=== PATIENT | male | born 1955 | race Caucasian/White ===

== ENCOUNTER 2025-03-21 06:32 | Emergency (ER) | payer OTHER, SELFPAY ==
[2025-03-21] VITALS (11 sets, daily range): BP systolic 163–170; BP diastolic 82; PULSE 70–102; TEMP 37.3; O2SAT 91–97; BMI 34.5
--- NOTE | 2025-03-21 06:52 | XR_ITS ---
The [address] [address] Patient Name: ARLETTE GALLARDO MRN: [id number] date: 1955 Sex: M Assigned Patient Location: ED.MAIN Current Patient Location: ED.MAIN Accession/Order Number: [id number] Exam Date: 03/21/2025 08:06 Report Date: 03/21/2025 08:08 At the request of: MIRYAM AZUL DO Procedure: XR chest 1V XR chest 1V 03/21/2025 7:37 AM SIGNS AND SYMPTOMS: neck pain PROTOCOL: Frontal radiograph COMPARISON: 10/23/2019 FINDINGS: The trachea is midline. Sternotomy wires overlie the mediastinum. There is mild cardiomegaly. Opacities noted in the left lung base. The lung parenchyma is clear. The bony thorax is intact. Remote healed or healing left fifth through seventh rib fractures are redemonstrated. XR/XR chest 1V IMPRESSION: There is cardiomegaly with a pleural-parenchymal opacity in the left lung base similar to the prior exam. Impression dictated by: Brian Iglesias M.D. 03/21/2025 8:08 AM Dictation Location: [place] [address] Electronically authenticated by: [id number] Y Date: 03/21/2025 08:08
--- NOTE | 2025-03-21 06:52 | CT_ITS ---
The [address] [address] Patient Name: ARLETTE GALLARDO MRN: [id number] date: 1955 Sex: M Assigned Patient Location: ED.MAIN Current Patient Location: ED.MAIN Accession/Order Number: [id number] Exam Date: 03/21/2025 08:08 Report Date: 03/21/2025 08:13 At the request of: MIRYAM AZUL DO Procedure: CT cervical spine wo con CT cervical spine wo con 03/21/2025 7:33 AM SIGN AND SYMPTOMS: Left neck and shoulder pain TECHNIQUE: Multi detector CT axial slices of the cervical spine were obtained without IV contrast. Volumetric acquisition sagittal, coronal, and 3-D reconstructions were performed and reviewed. CT was performed with one or more of the following dose reduction techniques: Automated exposure control, adjustment of the mA and/or kV according to patient size, or use of iterative reconstruction technique. COMPARISON: None. FINDINGS: There is preservation of the vertebral body heights. There is severe disc height loss at C3-C4 with moderate disc height loss at C4-C5, C5-C6, and C6-7. There is facet hypertrophy with uncovertebral joint spurring contributing to neural foraminal stenosis which is most pronounced at C3-C4. No fractures or dislocations are seen. There is 2 mm of anterolisthesis of C4 upon C5 secondary to facet hypertrophy. The craniocervical junction is within normal limits. Degenerative changes are noted in the atlantoaxial joint. The prevertebral soft tissues are within normal limits. The paraspinous soft tissues are within normal limits. Atherosclerotic changes are noted in the carotid bifurcations. The lung apices are unremarkable. Small left mastoid effusion is noted. CT/CT cervical spine wo con IMPRESSION: No fracture. There is 2 mm of anterolisthesis of C4 upon C5 secondary to facet hypertrophy. Degenerative changes are noted throughout cervical spine, greatest at C3-C4. Impression dictated by: Brian Iglesias M.D. 03/21/2025 8:13 AM Dictation Location: [place] [address] Electronically authenticated by: [id number] Y Date: 03/21/2025 08:13
--- OUTSIDE RECORDS SUMMARY | 2025-03-21 06:53 | XMS_ITS | Clinical Summary ---
Author Organization [facility] [employer] Address [id number] [address] [place] [address] Care Team Providers Care Personal Development Educator Name Role Phone No Pcp, No Pcp Primary Care Provider Unavailabl e Social History Tobacco Use Types Packs/Day Years Used Date Smoking Tobacco: Never Assessed Childcare Answer Date Recorded Childcare Unknown 01/30/2019 Employment Answer Date Recorded Employment Unknown 01/30/2019 Sex and Gender Information Value Date Recorded Sex Assigned at Not on file Legal Sex Male 11:24 AM EDT Gender Identity Not on file Sexual Orientation Not on file Plan of Treatment Health Maintenance Due Date Last Done Comments Depression Screening 1965 Tobacco Screening 1965 Adult BMI Screening 12/06/1971 DTaP,Tdap and Td Vaccines (1 - Tdap) 1972 Zoster (Shingles) Vaccine (1 of 2) 12/06/2003 Fall Risk Screening 2018 Influenza Vaccine 04/21/2025 08/24/2018 Medical Devices Not on file Insurance [facility] [employer] Care Teams Personal Development Educator Relationship Specialty Start Date End Date No Pcp, [place] [id number] PCP - General Family Medicine 01/24/23
--- OUTSIDE RECORDS SUMMARY | 2025-03-21 06:53 | XMS_ITS | Clinical Summary ---
Author Organization [facility] Address [address] [place] [address], [address] [place] [address] Care Team Providers Care Paper Cutter Operator Name Role Phone Unavailable Primary Care Provider Unavailabl e Social History Tobacco Use Types Packs/Day Years Used Date Smoking Tobacco: Never Assessed Sex and Gender Information Value Date Recorded Sex Assigned at Not on file Legal Sex Male 12:41 PM EDT Gender Identity Not on file Sexual Orientation Not on file Plan of Treatment Not on file
--- NOTE | 2025-03-21 06:56 | ECG_ITS ---
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 Measurements Intervals [place] Rate: 91 P: 20 [place]: 240 QRS: 90 QRSD: 104 T: -46 QT: 354 QTc: 402 Interpretive Statements 1100 Sinus rhythm 2231 First degree AV block [address] depression, possible subendocardial injury 4564 Twave abnormality, possible lateral ischemia 4664 Twave abnormality, possible inferior ischemia 9150 abnormal ECG Compared to ECG 11/12/2019 21:55:05 First degree AV block now present Possible ischemia now present Ventricular premature complex(es) no longer present Electronically Signed On 03-21-2025 18:31:34 EDT by LISA LOPEZ M.D.
--- NOTE | 2025-03-21 06:56 | ED.GENADUL1 ---
HPI HPI - General Adult General Chief complaint: Neck Pain/Injury Stated complaint: SHOULDER/NECK PAIN Time Seen by Provider: 03/21/25 06:46 Source: patient Mode of arrival: ambulance History of Present Illness HPI narrative: The patient is a 69-year-old male presenting to the emergency department via EMS. Patient is presenting to the emergency department for 4 to 5 days of left shoulder and neck pain. He stated that there was no known injury. He denied any heavy lifting, moving, twisting or repetitive movements. He is right-hand dominant. When it originally happened he assumed he slept on it wrong. So, he just let it go. However, the pain has gotten extremely severe. Is a 9 out of 10. It is sharp and stabbing-like in sensation. Movement makes it worse. Nothing makes it better. He has not had a temperature. He denies any midline point tenderness to the neck. He denies any fever or chills. He denies any IV drug use. He is borderline diabetic. No known immune modulating agents. The patient does not have any chest pain. He does not have any shortness of breath although he thinks he had some shortness of breath in the ambulance on the way over. Patient states that he thinks he was sweaty on the way over as well. No nausea. Patient denies any recent exertional dyspnea or shortness of breath. Denies any numbness or weakness in his upper extremities. Patient is unable to turn his head left or right. It is hard for him to pick his head up off of the pillow. No fever or chills. No injury. Past medical history: High blood pressure, high cholesterol, borderline diabetic Allergies: None Medications: Patient does not have a medication list available to us at time of assessment. Related Data Allergies Allergy/AdvReac Type Severity Reaction Status Date / Time No Known Drug Allergies Allergy Verified 03/21/25 06:35 Opioid HPI Opioid Management Most Recent Opioid Data: Last Pain Scale 10 Today, 07:04 Last ED Pain Assessment Today, 06:48 Last MAR Pain Assessment Today, 07:04 Review of Systems ROS Status of ROS 10 or more systems reviewed and unremarkable except as noted in history and below PFSH PFSH Social History Little interest or pleasure in doing things: not at all Feeling down, depressed, or hopeless: not at all Exam Narrative Exam Narrative: Prior to examining the patient, I have washed with hospital approved and provided Antiseptic Hand General Freight Agent and have also applied gloves.? Prior to touching the patient, I asked for consent to examine the patient.? General: Alert and oriented, well nourished, moderate distress. Painful to move his head right or left. Eye: PERRL, EOMI, normal conjunctiva. HENT: Normocephalic, normal hearing, no scleral icterus, Mucous membranes appear dry. Neck: Supple, non-tender, no carotid bruits, no JVD, no lymphadenopathy. patient can put his chin to his chest although it is extremely painful. Lungs: Clear to auscultation and percussion, non-labored respiration. No rhonchi, rales, wheezing Heart: Normal rate, regular rhythm, no murmur, gallop or edema. Abdomen: Soft, non-tender, non-distended, normal bowel sounds, no masses. Musculoskeletal: Normal range of motion and strength, no tenderness or swelling. Skin: Skin is warm, dry and pink, no rashes or lesions. Vitiligo bilateral upper extremities Neurologic: Awake, alert, and oriented X3, CN II-XII intact. Psychiatric: Cooperative, appropriate mood and affect.? Following the conclusion of the examination, I have washed my hands thoroughly after removing examination gloves. Constitutional Vital Signs, click to edit/add: Last Vital Signs Temp 99.2 F 03/21/25 06:36 Pulse 102 H 03/21/25 06:36 Resp 18 03/21/25 06:36 BP 170/82 H 03/21/25 06:36 Pulse Ox 97 03/21/25 06:36 O2 Del Method Room Air 03/21/25 06:36 Course Course Hospital Course: Patient presented to the emergency department with left shoulder and neck pain. Pain is a 9 out of 10. Upon physical exam the etiology is not clear. Generally considered chest pain equivalent, infection, or musculoskeletal etiologies. Provided the patient some analgesic medication with orphenadrine 60 mg IV push, morphine 4 mg IV push and Zofran 4 mg IV push. Obtained laboratories for chest pain etiology as well as imaging. Vital Signs Vital signs: Vital Signs Temperature 99.2 F 03/21/25 06:36 Pulse Rate 102 H 03/21/25 06:36 Respiratory Rate 18 03/21/25 06:36 Blood Pressure 170/82 H 03/21/25 06:36 Pulse Oximetry 97 03/21/25 06:36 Oxygen Delivery Method Room Air 03/21/25 06:36 Temperature 99.2 F 03/21/25 06:36 Pulse Rate 102 H 03/21/25 06:36 Respiratory Rate 18 03/21/25 06:36 Blood Pressure 170/82 H 03/21/25 06:36 Pulse Oximetry 97 03/21/25 06:36 Oxygen Delivery Method Room Air 03/21/25 06:36 Medical Decision Making MDM Narrative Medical decision making narrative: This, we are currently pending all imaging and blood work. My colleague is taking over the case at 7 AM. I do not think that the patient has meningitis. He does have a stiff neck that is painful to move but he can put his chin to his chest albeit with some discomfort but he does not have true meningeal signs. There is been no fever or chills. He does not appear toxic in nature. I do not believe that the patient has spinal epidural abscess. The patient has no midline point tenderness. He does not have any numbness or weakness in his upper extremities. He does not have any risk factors less than his age and borderline diabetes. Differential Diagnosis Differential Diagnosis: Acute coronary syndrome, arthritis, radiculopathy, meningitis Medical Records Medical records reviewed: Yes I reviewed the patient's medical records Lab Data Labs: Lab Results 03/21/25 Range/Units 06:40 WBC 7.6 (4.0-11.0) 10^3/uL RBC 4.46 L (4.70-6.10) 10^6/uL Hgb 13.2 L (14.0-18.0) g/dL Hct 39.0 L (42.0-54.0) % MCV 87.4 (80.0-94.0) fL MCH 29.6 (25.9-34.0) pg MCHC 33.8 (29.9-35.2) g/dL RDW 16.6 H (11.0-15.0) % Plt Count 144 L (150-450) 10^3/uL MPV 10.0 (9.5-13.5) fL Neut % (Auto) 71.0 (43.0-75.0) % Lymph % (Auto) 19.2 L (20.5-60.0) % [place] % (Auto) 8.7 (1.7-12.0) % Eos % (Auto) 0.3 L (0.9-7.0) % Baso % (Auto) 0.1 L (0.2-2.0) % Neut # (Auto) 5.4 (1.4-6.5) 10^3/uL Lymph # (Auto) 1.5 (1.2-3.8) 10^3/uL [place] # (Auto) 0.7 (0.3-0.8) 10^3/uL Eos # (Auto) 0.0 (0.0-0.7) 10^3/uL Baso # (Auto) 0.0 (0.0-0.1) 10^3/uL Abs Immat Gran (auto) 0.05 H (0.00-0.03) 10^3/uL Imm/Tot Granulo (auto) 0.7 H (0.0-0.5) % Sodium 135 L (136-145) mmol/L Potassium 4.3 (3.5-5.1) mmol/L Chloride 99 (98-107) mmol/L Carbon Dioxide 23.9 (21.0-32.0) mmol/L Anion Gap 16.4 BUN 27.0 H (7.0-18.0) mg/dL Creatinine 1.74 H (0.70-1.30) mg/dL Est GFR ( Amer) 47 L (>=60 mL/min/1.73m^2) Est GFR (Non-Af Amer) 39 L (>=60 mL/min/1.73m^2) BUN/Creatinine Ratio 15.5 Glucose 164 H (74-106) mg/dL Calcium 9.1 (8.5-10.1) mg/dL Magnesium 1.9 (1.8-2.4) mg/dL Troponin I High Sens 21.1 (4.0-76.1) pg/mL ECG Data Attestation: I personally reviewed and interpreted this ECG as follows: Interpretation: Twelve-lead EKG reveals a sinus rhythm with a ventricular of 91 bpm. The IN interval is prolonged. QRS duration is 104 ms. Patient has poor R wave progression in the septal leads. T wave inversion in the inferolateral leads. Borderline criteria for left ventricular hypertrophy. Summary: Abnormal EKG. Discharge Plan Discharge Patient Disposition: Still a Patient
[2025-03-21 06:59] LABS: Hematocrit 39.0 % (42.0-54.0); Hemoglobin 13.2 g/dL (14.0-18.0); Immature Granulocytes Abs Auto 0.05 10^3/uL (0.00-0.03); Immature Granulocytes Pct Auto 0.7 % (0.0-0.5); Lymphocytes Absolute Auto 1.5 10^3/uL (1.2-3.8); Mean Corpuscular HGB Conc 33.8 g/dL (29.9-35.2); Mean Corpuscular Hemoglobin 29.6 pg (25.9-34.0); Mean Corpuscular Volume 87.4 fL (80.0-94.0); Platelet Count 144 10^3/uL (150-450); Red Blood Count 4.46 10^6/uL (4.70-6.10); White Blood Count 7.6 10^3/uL (4.0-11.0)
[2025-03-21] MEDS: MORPHINE SULFATE 4 MG/ML VIAL IV (07:04)
[2025-03-21] MEDS: ORPHENADRINE 60 MG/2 ML VIAL IV (07:04)
[2025-03-21 07:18] LABS: Anion Gap 16.4; Blood Urea Nitrogen 27.0 mg/dL (7.0-18.0); Calcium 9.1 mg/dL (8.5-10.1); Carbon Dioxide 23.9 mmol/L (21.0-32.0); Chloride 99 mmol/L (98-107); Estimated GFR (African America 47 (>=60 mL/min/1.73m^2); Estimated GFR (Non-African Ame 39 (>=60 mL/min/1.73m^2); Glucose 164 mg/dL (74-106); Magnesium 1.9 mg/dL (1.8-2.4); Potassium 4.3 mmol/L (3.5-5.1); Sodium 135 mmol/L (136-145)
--- NOTE | 2025-03-21 08:43 | ED_ITS ---
HPI HPI - General Adult General Chief complaint: Neck Pain/Injury Stated complaint: SHOULDER/NECK PAIN Time Seen by Provider: 03/21/25 06:46 Source: patient Mode of arrival: ambulance History of Present Illness HPI narrative: 69-year-old male presented to the emergency department and was initially seen by Dr. Pratt and signed out to me after discussing the case with her thoroughly. Please see her full history and physical exam. Related Data Previous Rx's ?Medication ?Instructions ?Recorded methocarbamol 500 mg tablet 500 mg PO Q8H PRN pain #20 tabs 03/21/25 Allergies Allergy/AdvReac Type Severity Reaction Status Date / Time No Known Drug Allergies Allergy Verified 03/21/25 06:35 Opioid HPI Opioid Management Most Recent Opioid Data: Last Pain Scale 10 Today, 07:04 Last ED Pain Assessment Today, 06:48 Last MAR Pain Assessment Today, 07:04 PFSH PFSH Social History Little interest or pleasure in doing things: not at all Feeling down, depressed, or hopeless: not at all Exam Constitutional Vital Signs, click to edit/add: Last Vital Signs Temp 99.2 F 03/21/25 06:36 Pulse 94 H 03/21/25 08:40 Resp 17 03/21/25 08:40 BP 163/82 H 03/21/25 08:11 Pulse Ox 97 03/21/25 08:40 O2 Del Method Room Air 03/21/25 06:36 Course Course Hospital Course: Patient presented to the emergency department with left shoulder and neck pain. Pain is a 9 out of 10. Upon physical exam the etiology is not clear. Generally considered chest pain equivalent, infection, or musculoskeletal etiologies. Provided the patient some analgesic medication with orphenadrine 60 mg IV push, morphine 4 mg IV push and Zofran 4 mg IV push. Obtained laboratories for chest pain etiology as well as imaging. Vital Signs Vital signs: Vital Signs Temperature 99.2 F 03/21/25 06:36 Pulse Rate 102 H 03/21/25 06:36 Respiratory Rate 18 03/21/25 06:36 Blood Pressure 170/82 H 03/21/25 06:36 Pulse Oximetry 97 03/21/25 06:36 Oxygen Delivery Method Room Air 03/21/25 06:36 Temperature 99.2 F 03/21/25 06:36 Pulse Rate 94 H 03/21/25 08:40 Respiratory Rate 17 03/21/25 08:40 Blood Pressure 163/82 H 03/21/25 08:11 Pulse Oximetry 97 03/21/25 08:40 Oxygen Delivery Method Room Air 03/21/25 06:36 Medical Decision Making MDM Narrative Medical decision making narrative: CT C-spine shows degenerative changes with some anterior listhesis. Findings are discussed with the patient and his family. The patient is on [place] and is prescribed Robaxin. He will follow-up with his PCP. Treatment diagnosis and follow-up were discussed with the patient. Differential Diagnosis Differential Diagnosis: Cervical arthritis, degenerative disc disease, cervical radiculopathy Lab Data Lab results reviewed: Yes I reviewed the patient's lab results Labs: Lab Results 03/21/25 Range/Units 06:40 WBC 7.6 (4.0-11.0) 10^3/uL RBC 4.46 L (4.70-6.10) 10^6/uL Hgb 13.2 L (14.0-18.0) g/dL Hct 39.0 L (42.0-54.0) % MCV 87.4 (80.0-94.0) fL MCH 29.6 (25.9-34.0) pg MCHC 33.8 (29.9-35.2) g/dL RDW 16.6 H (11.0-15.0) % Plt Count 144 L (150-450) 10^3/uL MPV 10.0 (9.5-13.5) fL Neut % (Auto) 71.0 (43.0-75.0) % Lymph % (Auto) 19.2 L (20.5-60.0) % [place] % (Auto) 8.7 (1.7-12.0) % Eos % (Auto) 0.3 L (0.9-7.0) % Baso % (Auto) 0.1 L (0.2-2.0) % Neut # (Auto) 5.4 (1.4-6.5) 10^3/uL Lymph # (Auto) 1.5 (1.2-3.8) 10^3/uL [place] # (Auto) 0.7 (0.3-0.8) 10^3/uL Eos # (Auto) 0.0 (0.0-0.7) 10^3/uL Baso # (Auto) 0.0 (0.0-0.1) 10^3/uL Abs Immat Gran (auto) 0.05 H (0.00-0.03) 10^3/uL Imm/Tot Granulo (auto) 0.7 H (0.0-0.5) % Sodium 135 L (136-145) mmol/L Potassium 4.3 (3.5-5.1) mmol/L Chloride 99 (98-107) mmol/L Carbon Dioxide 23.9 (21.0-32.0) mmol/L Anion Gap 16.4 BUN 27.0 H (7.0-18.0) mg/dL Creatinine 1.74 H (0.70-1.30) mg/dL Est GFR ( Amer) 47 L (>=60 mL/min/1.73m^2) Est GFR (Non-Af Amer) 39 L (>=60 mL/min/1.73m^2) BUN/Creatinine Ratio 15.5 Glucose 164 H (74-106) mg/dL Calcium 9.1 (8.5-10.1) mg/dL Magnesium 1.9 (1.8-2.4) mg/dL Troponin I High Sens 21.1 (4.0-76.1) pg/mL Imaging Data CT C-spine: Radiologist's impression: ITS Impressions Cervical Spine CT 03/21/25 06:52 IMPRESSION: No fracture. There is 2 mm of anterolisthesis of C4 upon C5 secondary to facet hypertrophy. Degenerative changes are noted throughout cervical spine, greatest at C3-C4. Impression dictated by: Brian Iglesias M.D. 03/21/2025 8:13 AM Dictation Location: [employer] Electronically authenticated by: [id number] Y Date: 03/21/2025 08:13 Chest X-Ray 03/21/25 06:52 IMPRESSION: There is cardiomegaly with a pleural-parenchymal opacity in the left lung base similar to the prior exam. Impression dictated by: Brian Iglesias M.D. 03/21/2025 8:08 AM Dictation Location: [employer] Electronically authenticated by: [id number] Y Date: 03/21/2025 08:08 ECG Data Attestation: I personally reviewed and interpreted this ECG as follows: (EKG on my interpretation shows sinus rhythm with rate of 91) Discharge Plan Discharge Chief Complaint: Neck Pain/Injury Clinical Impression: Cervical arthritis Patient Disposition: Home, Self-Care Time of Disposition Decision: 08:39 Condition: Good Mode of Transportation: Private Vehicle Prescriptions / Home Meds: New methocarbamol 500 mg tablet 500 mg PO Q8H PRN (Reason: pain) Qty: 20 0RF Print Language: Divehi Instructions: Osteoarthritis (ED), Neck Pain (ED) Referrals: Physician,Non-Staff, MD [Primary Care Provider] - 1 week
== END 2025-03-21 09:06 | disposition home or self-care (01) ==
PROVIDERS: Emergency Medicine; Emergency Provider Emergency Medicine
DX: M47.812 Spondylosis without myelopathy or radiculopathy, cervical region (principal)
CPT/HCPCS: 36415; 71045; 72125; 80048; 83735; 84484; 85025; 93005; 96374; 96375; 99285; J2270; J2360; J2405